=== PATIENT | female | born 1985 | race Caucasian/White ===

== ENCOUNTER 2017-12-03 23:00 | Emergency (ER) | payer MEDICAID ==
[2017-12-03 23:28] VITALS: BP 194/104; PULSE 77; RESP 20; TEMP 97.9; O2SAT 100
[2017-12-03] MEDS ORDERED: DiphenhydrAMINE 50 mg/ml Inj IM STA (23:46)
--- NOTE | 2017-12-04 00:05 | C.PDOC ---
History Of Present Illness 32 y/o female presents to the ED complaining of a generalized pruritic rash intermittently for 2 weeks. Patient was seen by her PMD last week and prescribed Benadryl PO and Clobetasol oint, with no relief. She denies any shortness of breath, throat or lip swelling. No known allergens. Time Seen by Provider: 12/03/17 23:28 Chief Complaint (Nursing): Abnormal Skin Integrity History Per: Patient History/Exam Limitations: no limitations Onset/Duration Of Symptoms: Days (x 2 weeks) Current Symptoms Are (Timing): Still Present Past Medical History Reviewed: Historical Data, Nursing Documentation, Vital Signs Vital Signs: Last Vital Signs Temp 97.9 F 12/03/17 23:25 Pulse 77 12/03/17 23:25 Resp 20 12/04/17 00:29 BP 194/104 H 12/03/17 23:25 Pulse Ox 100 12/04/17 03:15 Family History: States: No Known Family Hx - Social History Hx Tobacco Use: No Hx Alcohol Use: No Hx Substance Use: No Review Of Systems Except As Marked, All Systems Reviewed And Found Negative. Constitutional: Negative for: Fever ENT: Negative for: Mouth Swelling, Throat Swelling Respiratory: Negative for: Cough, Shortness of Breath Skin: Positive for: Rash Physical Exam - Physical Exam Appears: Non-toxic, No Acute Distress Skin: Warm, Dry, Rash (Erythematous macular papular rash to bilateral buttocks and lateral hips - at different stages throughout - with additional affected areas at the antecubital regions) Head: Atraumatic, Normacephalic Eye(s): bilateral: Normal Inspection, PERRL, EOMI Ear(s): Bilateral: Normal Oral Mucosa: Moist Tongue: Normal Appearing Lips: Normal Appearing Neck: Normal ROM, Supple Chest: Symmetrical Cardiovascular: Rhythm Regular, No Murmur Respiratory: Normal Breath Sounds, No Accessory Muscle Use Neurological/Psych: Oriented x3, Normal Speech ED Course And Treatment O2 Sat by Pulse Oximetry: 100 (RA) Pulse Ox Interpretation: Normal Progress Note: Patient offered Benadryl IM but declined. Given prednisone PO in the ED. Patient's blood pressure elevated on arrival - she reports pmhx of elevated BP in doctor's offices or hospitals due to lab coat anxiety- but is not taking any medications for this and is otherwise asymptomatic. Advised patient to follow up with PMD for further evaluation and for derm referral Disposition Counseled Patient/Family Regarding: Diagnosis, Need For Followup, Rx Given - Disposition Disposition: HOME/ ROUTINE Disposition Time: 00:03 Condition: STABLE Additional Instructions: Please take meds as directed Please follow up with PMD for BP management Return to ER if worse Prescriptions: Cetirizine HCl [Zyrtec] 10 mg PO DAILY #14 capsule predniSONE [Prednisone] 40 mg PO DAILY #8 tab Instructions: Skin Rash (DC) Forms: [employer] (Bulgarian) - POA Present On Arrival: Blood Incompatibility - Clinical Impression Clinical Impression: Dermatitis, Elevated BP without diagnosis of hypertension - 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 - Scribe Statement The provider has reviewed the documentation as recorded by the Scribe (Karen Phelps) All medical record entries made by the Scribe were at my direction and personally dictated by me. I have reviewed the chart and agree that the record accurately reflects my personal performance of the history, physical exam, medical decision making, and the department course for this patient. I have also personally directed, reviewed, and agree with the discharge instructions and disposition.
== END 2017-12-04 00:29 | disposition home or self-care (01) ==
LOC: C.ER 23:00
DX: L30.9 Dermatitis, unspecified (principal); R03.0 Elevated blood-pressure reading, without diagnosis of hypertension